=== PATIENT | male | born 1970 | race American Indian/Alaskan Native ===

== ENCOUNTER 2019-01-05 12:22 | Emergency (ER) | payer SELFPAY ==
--- NOTE | 2019-01-05 12:32 | Emergency Department Report ---
Chief Complaint: High BP Stated Complaint: HBP Time Seen by Provider: 01/05/19 12:29 - HPI History of Present Illness: This is a 48 y.o. M. that presents to the ER with elevated blood pressure. Patient states he had a work injury on 12/25/2018. He was hit in the head with a pole accidentally and blood pressure elevated every since. He is being seen by workers compensation and can't return to work until blood pressure is controlled. - Exam Vital Signs: Vital Signs 01/05/19 12:28 Temperature 98.2 F Pulse Rate 63 Respiratory 18 Rate Blood Pressure 176/116 O2 Sat by Pulse 99 Oximetry MSE screening note: Focused history and physical exam performed. Due to findings the following was ordered: This initial assessment/diagnostic orders/clinical plan/treatment(s) is/are subject to change based on patient's health status, clinical progression and re- assessment by fellow clinical providers in the ED. Further treatment and workup at subsequent clinical providers discretion. Patient/guardians urged not to elope from the ED as their condition may be serious if not clinically assessed and managed. Initial orders include: ACC for further evaluation. ED Disposition for MSE Condition: Stable
[2019-01-05] MEDS ORDERED: NORVASC PO ONE (13:49)
[2019-01-05] MEDS ORDERED: HCTZ PO ONE (13:49)
--- NOTE | 2019-01-05 13:49 | Emergency Department Report ---
ED General Adult HPI - General Chief complaint: High BP Stated complaint: HBP Time Seen by Provider: 01/05/19 12:29 Source: patient Mode of arrival: Ambulatory Limitations: No Limitations - History of Present Illness Initial comments: 48-year-old male with history of hypertension presents to ED for elevated blood pressure. Patient sent to ER from [facility] office. Patient has been going there following an injury at work. The patient is a poor historian. Unsure what medication he is currently taking, although he states he has been somewhat compliant. States at one point in time he was taking two blood pressure medications. Unclear if he was taken off or if pt d/c'd himself. Denies FREDERICK, blurred vision, dizziness currently. -: week(s) (1) Consistency: constant Improves with: none Worsens with: none Associated Symptoms: denies: chest pain, headaches, nausea/vomiting - Related Data Previous Rx's Medication Instructions Recorded Last Taken Type Amlodipine Besylate [Norvasc] 5 mg PO QDAY #30 tablet 01/05/19 Unknown Rx hydroCHLOROthiazide [HCTZ] 25 mg PO QDAY #30 tablet 01/05/19 Unknown Rx Allergies Allergy/AdvReac Type Severity Reaction Status Date / Time No Known Allergies Allergy Unverified 01/05/19 12:23 ED Review of Systems ROS: Stated complaint: HBP Other details as noted in HPI Comment: All other systems reviewed and negative Cardiovascular: denies: chest pain Gastrointestinal: denies: nausea, vomiting Neurological: denies: headache, weakness, numbness, paresthesias, abnormal gait ED Past Medical Hx - Past Medical History Hx Hypertension: Yes - Surgical History Past Surgical History?: No - Social History Smoking Status: Never Smoker Substance Use Type: Alcohol - Medications Home Medications: Home Medications Medication Instructions Recorded Confirmed Last Taken Type Amlodipine Besylate [Norvasc] 5 mg PO QDAY #30 tablet 01/05/19 Unknown Rx hydroCHLOROthiazide [HCTZ] 25 mg PO QDAY #30 tablet 01/05/19 Unknown Rx ED Physical Exam - General Limitations: No Limitations General appearance: alert, in no apparent distress - Head Head exam: Present: atraumatic, normocephalic - Eye Eye exam: Present: normal appearance - ENT ENT exam: Present: mucous membranes moist - Neck Neck exam: Present: normal inspection - Respiratory Respiratory exam: Present: normal lung sounds bilaterally. Absent: respiratory distress - Cardiovascular Cardiovascular Exam: Present: regular rate, normal rhythm - GI/Abdominal GI/Abdominal exam: Absent: distended - Extremities Exam Extremities exam: Present: normal inspection - Neurological Exam Neurological exam: Present: alert, oriented X3, CN II-XII intact. Absent: motor sensory deficit - Psychiatric Psychiatric exam: Present: normal affect, normal mood - Skin Skin exam: Present: warm, dry, intact, normal color. Absent: rash ED Course Vital Signs 01/05/19 01/05/19 12:28 14:11 Temperature 98.2 F Pulse Rate 63 57 L Respiratory 18 Rate Blood Pressure 176/116 183/118 O2 Sat by Pulse 99 Oximetry ED Medical Decision Making - Medical Decision Making - asymptomatic HTN - unsure of what meds he takes - last seen by PCP (does not know the name) approx 6 mos ago, but has since lost his insurance - will prescribe norvasc and hctz - advised outpt f.u - Differential Diagnosis asymptomatic HTN Critical care attestation.: If time is entered above; I have spent that time in minutes in the direct care of this critically ill patient, excluding procedure time. ED Disposition Clinical Impression: Hypertension Disposition: DC-01 TO HOME OR SELFCARE Is pt being admited?: No Condition: Stable Instructions: Hypertension (ED) Prescriptions: hydroCHLOROthiazide [HCTZ] 25 mg PO QDAY #30 tablet Amlodipine Besylate [Norvasc] 5 mg PO QDAY #30 tablet Referrals: [facility] [Provider Group] - 3-[address] [facility] [Outside] - 3-5 Days Time of Disposition: 13:48
[2019-01-05 14:25] VITALS: BP 183/118
== END 2019-01-05 14:14 | disposition home or self-care (01) ==
LOC: ED 12:22
DX: I10 Essential (primary) hypertension (principal)
CPT/HCPCS: 99282

== ENCOUNTER 2019-01-19 10:58 | Emergency (ER) | payer SELFPAY ==
--- NOTE | 2019-01-19 11:11 | Emergency Department Report ---
HPI - General Chief Complaint: High BP Time Seen by Provider: 01/19/19 11:11 - HPI HPI: This is a 39-year-old male who comes to the ER today with hypertension. He states that he is on Workmen's Comp. for head injury and they are attempting to send him to physical therapy however every time he goes to physical therapy has elevated bp and they will not do his PT. and has been seen here in the ER for his hypertension. He was prescribed Norvasc and HCTZ. He reports that he is taking it. He has not followed up with a primary care doctor due to financial reasons. Patient denies chest pain or shortness of breath. He denies any other symptoms including headache at this time. He states he does get intermittent headaches because of a head injury. His is concerned because he has had no rest since work related injury and she thinks is why his blood pressure was up. Patient continues to go to work and it sounds like he is on work restrictions. pmh htn rx norvasc hctz pcp none ED Past Medical Hx - Past Medical History Previous Medical History?: Yes Hx Hypertension: Yes Hx Arthritis: Yes Additional medical history: gout. heart disease - Surgical History Past Surgical History?: No - Social History Smoking Status: Never Smoker Substance Use Type: None - Medications Home Medications: Home Medications Medication Instructions Recorded Confirmed Last Taken Type amLODIPine [Norvasc] 10 mg PO DAILY #30 tab 01/19/19 Unknown Rx hydroCHLOROthiazide [HCTZ] 25 mg PO QDAY #30 tablet 01/19/19 Unknown Rx ED Review of Systems ROS: Stated complaint: BLOOD PRESSURE HIGH Other details as noted in HPI Comment: All other systems reviewed and negative Physical Exam - Physical Exam Vital Signs: Vital Signs 01/19/19 11:03 Temperature 97.7 F Pulse Rate 77 Respiratory 16 Rate Blood Pressure 166/112 [Left] O2 Sat by Pulse 99 Oximetry Physical Exam: WDWN patient in NAD VS per RN flow sheet Alert and oriented to person, place and time. S1-S2. No S3 or S4. No systolic or diastolic murmur. No JVD. No pitting edema. Lungs clear to auscultation bilaterally anteriorly and posteriorly. Abdomen soft nontender bowel sounds X4 Moves all extremities well. Mood and affect appropriate. ED Course Vital Signs 01/19/19 11:03 Temperature 97.7 F Pulse Rate 77 Respiratory 16 Rate Blood Pressure 166/112 [Left] O2 Sat by Pulse 99 Oximetry ED Medical Decision Making - Medical Decision Making PT IS TAKING HIS BP MEDS BP RECHECKED AND TRENDED DOWN. WILL INC NORVASC DC HOME WITH DC PLAN OF CARE. REFERRAL FOR PCP PROVIDED. Vital Signs 01/19/19 11:03 Temperature 97.7 F Pulse Rate 77 Respiratory 16 Rate Blood Pressure 166/112 [Left] O2 Sat by Pulse 99 Oximetry - Differential Diagnosis HTN Critical care attestation.: If time is entered above; I have spent that time in minutes in the direct care of this critically ill patient, excluding procedure time. ED Disposition Clinical Impression: Hypertension Disposition: DC-01 TO HOME OR SELFCARE Is pt being admited?: No Does the pt Need Aspirin: No Condition: Stable Instructions: DASH Eating Plan (ED), Hypertension (ED) Additional Instructions: DIET TOLERATED MEDS ORDERED TODAY IN ER FOLLOW INSTRUCTIONS ON THE BOTTLE FOLLOW UP PCP WITHIN 48 HOURS TO ENSURE YOU ARE GETTING BETTER ACTIVITY TOLERATED MOTRIN OR TYLENOL FOR PAIN OR FEVER RETURN TO THE ER FOR WORSENING SYMPTOMS NOT RELIEVED BY YOUR MEDICATIONS. you should do the following with your current pills (UNTIL YOU GET NEW RX) TAKE 10 MG NORVASC AMLODIPINE AND 25 MG HCTZ EVERY AM. REFERRAL FOR PCP BELOW Prescriptions: hydroCHLOROthiazide [HCTZ] 25 mg PO QDAY #30 tablet amLODIPine [Norvasc] 10 mg PO DAILY #30 tab Referrals: [facility] [Outside] - 3-5 Days FLORENTIN ORDOÑEZ MD [Staff Physician] - 3-5 Days Forms: Work/School Release Form(ED) Time of Disposition: 11:39
[2019-01-19] MEDS ORDERED: CATAPRES PO ONE (11:38)
[2019-01-19 11:50] VITALS: BP 156/97
== END 2019-01-19 11:56 | disposition home or self-care (01) ==
LOC: ED 10:58
DX: I10 Essential (primary) hypertension (principal); M19.90 Unspecified osteoarthritis, unspecified site; Z98.890 Other specified postprocedural states